=== PATIENT | female | born 1990 | race African-American/Black ===

== ENCOUNTER 2022-02-23 19:37 | Inpatient (IN) | payer OTHER ==
[2022-02-23] MEDS ORDERED: Promethazine HCl 25 MG/ML VIAL IM PRN (20:12)
[2022-02-23] MEDS ORDERED: Carboprost 250 MCG/ML AMP IM PRN (20:12)
[2022-02-23] MEDS ORDERED: Labetalol HCl 100 MG/20 ML VIAL SLOW IVP PRN ×2 (20:12)
[2022-02-23] MEDS ORDERED: Lorazepam 2 MG/ML VIAL SLOW IVP PRN (20:12)
[2022-02-23] MEDS ORDERED: Acetaminophen 500 MG TAB PO PRN (20:12)
[2022-02-23] MEDS ORDERED: hydrALAZINE 20 MG/ML VIAL SLOW IVP PRN (20:12)
[2022-02-23] MEDS ORDERED: Calcium Gluc 4.6 MEQ/10 ML (100 MG/ML) SLOW IVP PRN (20:12)
[2022-02-23] MEDS ORDERED: Magnesium Sulfate 20 gm/500 ml 20 GM/500 ML BAG ONE (20:12)
[2022-02-23] MEDS ORDERED: Diphenoxylate HCl/Atropine Tablet PO PRN (20:12)
[2022-02-23] MEDS ORDERED: Ibuprofen 800 MG TAB PO PRN (20:12)
[2022-02-23] MEDS ORDERED: HYDROcodone/Acetaminophen 5/325 mg Tablet PO PRN (20:12)
[2022-02-23] MEDS ORDERED: Misoprostol 200 MCG TAB PR PRN (20:12)
[2022-02-23] MEDS ORDERED: Lidocaine 1% (PF) 30 ML VIAL SC PRN (20:12)
[2022-02-23] MEDS ORDERED: Ondansetron PF 4 MG/2 ML Vial IVP PRN (20:12)
[2022-02-23] MEDS ORDERED: hydrALAZINE 20 MG/ML VIAL ONE (20:12)
[2022-02-23] MEDS ORDERED: Butorphanol Tartrate 1 MG/ML VIAL SLOW IVP PRN (20:12)
[2022-02-23] MEDS ORDERED: Betamet Acet/Betamet Na Ph 30 MG/5 ML VIAL ONE (20:13)
[2022-02-23] MEDS ORDERED: NS w/ Oxytocin 30 units 500 ML IV SCH (20:15)
[2022-02-23] MEDS ORDERED: Lactated Ringer's 1,000 ML IV SCH (20:15)
[2022-02-23] MEDS: hydrALAZINE 20 MG/ML VIAL SLOW IVP PRN ×2 (20:32→21:27)
[2022-02-23 20:36] VITALS: BMI 25.4
[2022-02-23 20:52] LABS: Hemoglobin 7.4 g/dL (12.0-15.5); Mean Corpuscular HGB CONC 29.2 g/dL (32.0-36.0); Mean Corpuscular Hemoglobin 20.7 pg (27.0-33.0); Mean Corpuscular Volume 70.7 fl (81.6-98.3); Mean Platelet Volume 10.4 fl (7.4-10.4); Platelet Count 208 10x3/uL (150-450); RBC Distribution Width 17.1 % (11.5-14.5); Red Blood Cell (RBC) Count 3.58 10x6/uL (3.90-5.03)
[2022-02-23 20:59] LABS: ALT (SGPT) Less than 6 U/L (8-55); AST (SGOT) 16 U/L (5-34); Albumin 3.6 g/dL (3.5-5.0); Alkaline Phosphatase 127 U/L (40-110); Anion Gap 13 mmol/L (10-20); BUN (Urea Nitrogen) 16 mg/dL (7.0-18.7); Bilirubin, Total 0.6 mg/dL (0.2-1.2); Calc. Creatinine Clearance 139 mL/min (70-130); Calcium 8.4 mg/dL (7.8-10.44); Carbon Dioxide 19 mmol/L (22-29); Chloride 106 mmol/L (98-107); Estimated GFR 113; Globulin 3.2 g/dL (2.4-3.5); Glucose 77 mg/dL (70-105); Potassium 4.2 mmol/L (3.5-5.1); Protein, Total 6.8 g/dL (6.0-8.3); Sodium 134 mmol/L (136-145)
[2022-02-23] MEDS ORDERED: Penicillin G Potassium 5 MILL.UNITS in Sodium Chloride 0.9% 100 ML IVPB SCH (21:15)
[2022-02-23 21:18] LABS: HBSAg Index 0.22 S/CO (0-0.99); Hep B Surf Ag Non-Reactive S/CO (NonReactive)
[2022-02-23 21:34] LABS: INR-International Normal Ratio 0.9; PTT 22.5 sec (22.0-33.0); Prothrombin Time 9.3 sec (9.5-12.1)
[2022-02-23] MEDS: Labetalol HCl 100 MG TAB PO SCH (21:39)
[2022-02-23 22:34] LABS: Syphilis Antibody INDETERMINATE (Nonreactive)
[2022-02-23] MEDS: Betamet Acet/Betamet Na Ph 30 MG/5 ML VIAL IM SCH (22:39)
[2022-02-23 23:04] LABS: Amphetamine Not Detected (NotDetected); Barbiturates Screen Not Detected (NotDetected); Benzodiazepine Screen Not Detected (NotDetected); Cocaine Metabolite Screen Not Detected (NotDetected); Methadone Not Detected (NotDetected); Methamphetamine Not Detected (NotDetected); Opiate Screen Not Detected (NotDetected); Oxycodone Screen Not Detected (NotDetected); Phencyclidine (PCP) Not Detected (NotDetected); THC/Cannabinoid Screen Not Detected (NotDetected); Tricyclic Screen Not Detected (NotDetected)
[2022-02-24 02:27] LABS: SARS-CoV-2 NAA Rapid Test Not Detected (NotDetected)
[2022-02-24] MEDS: Magnesium Sulfate 20 gm/500 ml 20 GM/500 ML BAG IVPB SCH ×2 (05:00→15:32)
[2022-02-24] MEDS: Labetalol HCl 100 MG TAB PO SCH ×2 (05:59→09:34)
[2022-02-24] MEDS: hydrALAZINE 20 MG/ML VIAL SLOW IVP PRN ×4 (09:36→21:33)
[2022-02-24] MEDS: Betamet Acet/Betamet Na Ph 30 MG/5 ML VIAL IM SCH (12:18)
[2022-02-24] MEDS ORDERED: Penicillin G Potassium 5 MILL.UNITS VIAL ONE (17:00)
[2022-02-24] MEDS: Misoprostol 100 MCG TAB VAG SCH ×2 (17:08→21:00)
[2022-02-24] MEDS ORDERED: Labetalol HCl 100 MG TAB PO SCH (21:00)
[2022-02-24] MEDS: Penicillin G 2.5 MILL.units 2.5 MILL.UNITS in Premix Bag 1 BAG IVPB SCH (21:00)
[2022-02-25] MEDS: Penicillin G 2.5 MILL.units 2.5 MILL.UNITS in Premix Bag 1 BAG IVPB SCH (01:20)
[2022-02-25] MEDS ORDERED: Fentanyl 2 mcg/Bup 0.1% Cadd 100 ML ONE (01:35)
[2022-02-25] MEDS: Magnesium Sulfate 20 gm/500 ml 20 GM/500 ML BAG IVPB SCH ×3 (02:22→21:08)
[2022-02-25] MEDS ORDERED: Dexmedetomidine 200 MCG/2 ML VIAL ONE (03:38)
[2022-02-25] MEDS ORDERED: Promethazine HCl 25 MG/ML VIAL IM PRN ×2 (03:50→05:31)
[2022-02-25] MEDS ORDERED: ePHEDrine Sulfate 50 MG/10 ML VIAL SLOW IVP PRN (03:50)
[2022-02-25] MEDS ORDERED: Moisturizing Cream (Eucerin) 113 GM JAR TOP PRN (03:50)
[2022-02-25] MEDS ORDERED: Ondansetron PF 4 MG/2 ML Vial IVP PRN ×2 (03:50→05:31)
[2022-02-25] MEDS ORDERED: Lactated Ringer's 500 ML IV PRN (03:50)
[2022-02-25] MEDS ORDERED: Acetaminophen 325 MG TAB PO PRN (03:50)
[2022-02-25] MEDS ORDERED: diphenhydrAMINE 50 MG/ML VIAL IVP PRN (03:50)
[2022-02-25] MEDS ORDERED: Naloxone HCl 0.4 mg/ml Vial IVP PRN ×2 (03:50)
[2022-02-25] MEDS ORDERED: Communication Order-Pharmacy FS SCH (04:00)
[2022-02-25] MEDS ORDERED: Fentanyl 2 mcg/Bupivacaine 0.1% Cassette 100 ML EPIDURAL SCH (04:00)
[2022-02-25] MEDS ORDERED: Misoprostol 200 MCG TAB ONE (05:13)
[2022-02-25] MEDS ORDERED: Lorazepam 2 MG/ML VIAL SLOW IVP PRN (05:31)
[2022-02-25] MEDS ORDERED: Benzocaine-Menthol 82.5 ML CAN TOP PRN (05:31)
[2022-02-25] MEDS ORDERED: HYDROcodone/Acetaminophen 5/325 mg Tablet PO PRN (05:31)
[2022-02-25] MEDS ORDERED: NS w/ Oxytocin 30 units 500 ML IV SCH (05:31)
[2022-02-25] MEDS ORDERED: diphenhydrAMINE 25 MG CAP PO PRN (05:31)
[2022-02-25] MEDS ORDERED: Calcium Gluc 4.6 MEQ/10 ML (100 MG/ML) SLOW IVP PRN (05:31)
[2022-02-25] MEDS ORDERED: hydrALAZINE 20 MG/ML VIAL SLOW IVP PRN ×2 (05:31→14:31)
[2022-02-25] MEDS ORDERED: Bisacodyl 10 MG SUPP PR PRN (05:31)
[2022-02-25] MEDS ORDERED: Milk Of Magnesia 30 ML UDCUP PO PRN (05:31)
[2022-02-25] MEDS ORDERED: Boostrix 0.5 ML (Tdap) VIAL (>/=7 yrs of age) IM ONE (05:31)
[2022-02-25] MEDS ORDERED: hydrALAZINE 20 MG/ML VIAL ONE (05:41)
[2022-02-25] MEDS: hydrALAZINE 20 MG/ML VIAL SLOW IVP PRN ×3 (06:40→07:30)
[2022-02-25] MEDS: Ferrous Sulfate 325 MG TAB PO SCH ×2 (08:41→19:32)
[2022-02-25] MEDS: Prenatal Vitamin 1 TAB PO SCH (08:41)
[2022-02-25] MEDS: Docusate 100 MG CAP PO SCH ×2 (08:41→21:08)
[2022-02-25] MEDS: Ibuprofen 800 MG TAB PO SCH ×3 (08:41→21:08)
[2022-02-25] MEDS: NIFEdipine XL 30 MG TAB PO SCH (08:41)
[2022-02-25] MEDS: Labetalol HCl 100 MG/20 ML VIAL SLOW IVP PRN (10:37)
[2022-02-25] MEDS: Misoprostol 100 MCG TAB VAG SCH (19:31)
[2022-02-25] MEDS: Labetalol HCl 100 MG TAB PO SCH (21:08)
[2022-02-26 05:28] LABS: Magnesium 6.6 mg/dL (1.6-2.6)
[2022-02-26 05:30] LABS: Hemoglobin 6.9 g/dL (12.0-15.5); Mean Corpuscular HGB CONC 29.4 g/dL (32.0-36.0); Mean Corpuscular Hemoglobin 20.7 pg (27.0-33.0); Mean Corpuscular Volume 70.6 fl (81.6-98.3); Mean Platelet Volume 10.3 fl (7.4-10.4); Platelet Count 183 10x3/uL (150-450); RBC Distribution Width 17.3 % (11.5-14.5); Red Blood Cell (RBC) Count 3.33 10x6/uL (3.90-5.03); White Blood Cell (WBC) Count 14.1 10x3/uL (3.5-10.5)
[2022-02-26] MEDS: Labetalol HCl 100 MG/20 ML VIAL SLOW IVP PRN (07:00)
[2022-02-26] MEDS: NIFEdipine XL 30 MG TAB PO SCH ×2 (07:22→07:23)
[2022-02-26] MEDS: Ibuprofen 800 MG TAB PO SCH ×3 (07:24→21:13)
[2022-02-26] MEDS: Labetalol HCl 100 MG TAB PO SCH ×3 (07:24→16:23)
[2022-02-26] MEDS: Prenatal Vitamin 1 TAB PO SCH (07:24)
[2022-02-26] MEDS: Ferrous Sulfate 325 MG TAB PO SCH (07:24)
[2022-02-26] MEDS ORDERED: hydrALAZINE 20 MG/ML VIAL SLOW IVP PRN (07:30)
[2022-02-26] MEDS ORDERED: Labetalol HCl 100 MG TAB PO SCH (08:00)
[2022-02-26] MEDS: Docusate 100 MG CAP PO SCH ×2 (13:53→21:13)
[2022-02-26] MEDS ORDERED: Labetalol HCl 100 MG/20 ML VIAL SLOW IVP SCH (20:15)
[2022-02-27] MEDS: Labetalol HCl 100 MG TAB PO SCH ×2 (01:37→16:26)
[2022-02-27] MEDS: Ibuprofen 800 MG TAB PO SCH ×3 (05:15→21:22)
[2022-02-27 05:57] LABS: ALT (SGPT) Less than 6 U/L (8-55); AST (SGOT) 13 U/L (5-34); Albumin 3.2 g/dL (3.5-5.0); Alkaline Phosphatase 88 U/L (40-110); Anion Gap 12 mmol/L (10-20); BUN (Urea Nitrogen) 21 mg/dL (7.0-18.7); Bilirubin, Total 0.6 mg/dL (0.2-1.2); Calc. Creatinine Clearance 141 mL/min (70-130); Calcium 8.4 mg/dL (7.8-10.44); Carbon Dioxide 22 mmol/L (22-29); Chloride 106 mmol/L (98-107); Estimated GFR 115; Glucose 74 mg/dL (70-105); Potassium 4.3 mmol/L (3.5-5.1); Protein, Total 6.2 g/dL (6.0-8.3); Sodium 136 mmol/L (136-145)
[2022-02-27] MEDS: Misoprostol 100 MCG TAB VAG SCH (07:27)
[2022-02-27] MEDS: Ferrous Sulfate 325 MG TAB PO SCH ×3 (07:42→16:25)
[2022-02-27] MEDS: Docusate 100 MG CAP PO SCH ×2 (07:52→21:22)
[2022-02-27] MEDS: Prenatal Vitamin 1 TAB PO SCH (07:52)
[2022-02-27] MEDS: NIFEdipine XL 60 MG TAB PO SCH (07:52)
[2022-02-27] MEDS ORDERED: Labetalol HCl 100 MG TAB PO SCH (09:00)
[2022-02-28] MEDS: Labetalol HCl 100 MG TAB PO SCH ×3 (00:34→17:53)
[2022-02-28] MEDS: Ibuprofen 800 MG TAB PO SCH ×3 (05:06→23:09)
[2022-02-28] MEDS: Penicillin G 2.5 MILL.units 2.5 MILL.UNITS in Premix Bag 1 BAG IVPB SCH (08:28)
[2022-02-28] MEDS: NIFEdipine XL 60 MG TAB PO SCH (08:41)
[2022-02-28] MEDS: Prenatal Vitamin 1 TAB PO SCH (08:42)
[2022-02-28] MEDS: Docusate 100 MG CAP PO SCH ×2 (08:43→23:09)
[2022-02-28] MEDS: Ferrous Sulfate 325 MG TAB PO SCH ×2 (08:43→17:53)
[2022-03-01] MEDS: Labetalol HCl 100 MG TAB PO SCH ×3 (01:06→17:12)
[2022-03-01] MEDS: Ibuprofen 800 MG TAB PO SCH ×2 (05:51→14:00)
[2022-03-01] MEDS: Penicillin G 2.5 MILL.units 2.5 MILL.UNITS in Premix Bag 1 BAG IVPB SCH ×2 (07:03→07:04)
[2022-03-01] MEDS: NIFEdipine XL 60 MG TAB PO SCH (09:59)
[2022-03-01] MEDS: Ferrous Sulfate 325 MG TAB PO SCH ×2 (10:00→17:12)
[2022-03-01] MEDS: Docusate 100 MG CAP PO SCH (10:00)
[2022-03-01] MEDS: Prenatal Vitamin 1 TAB PO SCH (10:05)
[2022-03-01 16:35] VITALS: BP 119/71; TEMP 98.6
== END 2022-03-01 17:54 | disposition home or self-care (01) | DRG 807 ==
LOC: CSHLD/OP 19:37 → CSHLD 22:43 → CSHPP 02-26 10:00
PROVIDERS: ADMIT Family Medicine; ATTEND Family Medicine
PROC: 10907ZC Drainage of Amniotic Fluid, Therapeutic from Products of Conception, Via Natural or Artificial Opening (ICD-10-PCS; 2022-02-24)
PROC: 10E0XZZ Delivery of Products of Conception, External Approach (ICD-10-PCS; principal; 2022-02-25)
DX: O14.14 Severe pre-eclampsia complicating childbirth (principal); Z37.0 Single live birth; Z3A.34 34 weeks gestation of pregnancy; Z86.19 Personal history of other infectious and parasitic diseases; O99.824 Streptococcus B carrier state complicating childbirth; Z80.3 Family history of malignant neoplasm of breast; Z80.0 Family history of malignant neoplasm of digestive organs; Z80.42 Family history of malignant neoplasm of prostate; Z20.822 Contact with and (suspected) exposure to COVID-19
CPT/HCPCS: 36415; 51702; 70450; 76815; 76819; 80053; 80306; 82570; 83735; 84156; 85027; 85610; 85730; 86593; 86780; 86850; 86900; 86901; 87340; 93975; 99285; J0360; J0702; J1200; J2540; J2590; J3475; J3490; U0002

== ENCOUNTER 2022-10-25 15:33 | Observation (INO) | payer OTHER ==
[2022-10-25] MEDS ORDERED: Acetaminophen 325 MG TAB PO PRN (16:08)
[2022-10-25] MEDS ORDERED: hydrALAZINE 20 MG/ML VIAL SLOW IVP PRN (16:14)
[2022-10-25] MEDS ORDERED: Sodium Chloride 0.9% 1,000 ML IV SCH (16:15)
[2022-10-25] MEDS ORDERED: Ondansetron PF 4 MG/2 ML Vial IVP PRN (16:56)
[2022-10-25 16:59] LABS: #Monocytes 0.4 10x3/uL (0.0-1.1); #Neutrophils 2.9 10x3/uL (1.5-8.4); %Basophils 0.2 % (0.0-2.0); %Eosinophils 0.4 % (0.0-6.0); %Lymphocytes 36.3 % (18.0-47.0); %Neutrophils 55.9 % (40.0-75.0); Hemoglobin 7.5 g/dL (12.0-15.5); Mean Corpuscular HGB CONC 29.5 g/dL (32.0-36.0); Mean Corpuscular Volume 67.7 fl (81.6-98.3); Mean Platelet Volume 9.6 fl (7.4-10.4); Platelet Count 266 10x3/uL (150-450); RBC Distribution Width 23.5 % (11.5-14.5); Red Blood Cell (RBC) Count 3.75 10x6/uL (3.90-5.03); White Blood Cell (WBC) Count 5.1 10x3/uL (3.5-10.5)
[2022-10-25 17:19] LABS: ALT (SGPT) 9 U/L (8-55); AST (SGOT) 18 U/L (5-34); Albumin 4.2 g/dL (3.5-5.0); Alkaline Phosphatase 50 U/L (40-110); Anion Gap 12 mmol/L (10-20); BUN (Urea Nitrogen) 15 mg/dL (7.0-18.7); Bilirubin, Total 0.5 mg/dL (0.2-1.2); Calc. Creatinine Clearance 0 mL/min (70-130); Calcium 8.9 mg/dL (7.8-10.44); Carbon Dioxide 20 mmol/L (22-29); Chloride 107 mmol/L (98-107); Estimated GFR 122; Globulin 3.1 g/dL (2.4-3.5); Glucose 97 mg/dL (70-105); Lipase 18 U/L (8-78); Potassium 3.3 mmol/L (3.5-5.1); Protein, Total 7.3 g/dL (6.0-8.3)
[2022-10-25 17:23] LABS: Bilirubin Neg (Negative); Blood, Urine 10 (Negative); Clarity Clear (Clear); Glucose, Urine (Dipstick) Normal (Negative); Ketone, Urine 5 mg/dL (Negative); Leukocyte 25 (Negative); Nitrite Negative (Negative); Protein, Urine (Dipstick) 30 mg/dl (Neg-Trace); Specific Gravity, Urine 1.025 (1.005-1.030); Urobilinogen Normal mg/dL (Less than 2)
[2022-10-25 17:35] LABS: Sodium 136 mmol/L (136-145)
[2022-10-25 17:40] LABS: Bacteria/HPF Rare-Few HPF (None Seen); CAUTI Indications for Culture Pregnancy; RBC/HPF 0-3 HPF (0-3)
[2022-10-25 17:41] LABS: Mucous/LPF Rare LPF (<2+); Urine Culture Reflex Yes Yes
[2022-10-25 18:45] VITALS: BMI 15.5
[2022-10-25] MEDS: Lactated Ringer's 1,000 ML IV SCH (20:41)
[2022-10-25] MEDS: pyridOXINE 50 MG (B6) TAB PO SCH (20:42)
[2022-10-25] MEDS: Potassium Chloride 20 MEQ in Premix Bag 1 BAG IVPB SCH ×2 (20:42→22:03)
[2022-10-25] MEDS: Labetalol HCl 100 MG/20 ML VIAL SLOW IVP PRN (20:44)
[2022-10-25] MEDS ORDERED: diphenhydrAMINE 25 MG CAP PO SCH (20:45)
[2022-10-25] MEDS ORDERED: Labetalol HCl 100 MG TAB PO SCH (21:00)
[2022-10-25] MEDS: Famotidine/PF 20 mg/2ml Vial SLOW IVP SCH (21:57)
[2022-10-26] MEDS: pyridOXINE 50 MG (B6) TAB PO SCH ×3 (03:17→21:29)
[2022-10-26] MEDS: Labetalol HCl 100 MG/20 ML VIAL SLOW IVP PRN ×2 (03:33→16:42)
[2022-10-26 03:38] LABS: Anion Gap 12 mmol/L (10-20); BUN (Urea Nitrogen) 12 mg/dL (7.0-18.7); Calc. Creatinine Clearance 92 mL/min (70-130); Calcium 9.2 mg/dL (7.8-10.44); Carbon Dioxide 20 mmol/L (22-29); Chloride 107 mmol/L (98-107); Estimated GFR 125; Glucose 101 mg/dL (70-105); Potassium 3.3 mmol/L (3.5-5.1); Sodium 136 mmol/L (136-145)
[2022-10-26 04:00] LABS: Free T4 (Free Thyroxine) 1.02 ng/dL (0.70-1.48); Thyroid Stimulating Hormone 0.1421 uIU/mL (0.35-4.94)
[2022-10-26] MEDS ORDERED: Potassium Chloride 20 MEQ TAB PO SCH (08:00)
[2022-10-26] MEDS ORDERED: NIFEdipine XL 30 MG TAB PO SCH (09:00)
[2022-10-26] MEDS: Famotidine/PF 20 mg/2ml Vial SLOW IVP SCH ×2 (09:01→21:29)
[2022-10-26] MEDS: Lactated Ringer's 1,000 ML IV SCH ×2 (09:01→15:04)
[2022-10-26] MEDS: Labetalol HCl 200 MG TAB PO SCH ×2 (09:01→21:29)
[2022-10-26 10:18] LABS: Magnesium 1.9 mg/dL (1.6-2.6); Phosphorus 2.8 mg/dL (2.3-4.7)
[2022-10-26] MEDS ORDERED: Electrolyte Replacement Protocol 1 EACH FS PRN (11:20)
[2022-10-26] MEDS ORDERED: Magnesium 2 GM/50 ML(in water) 2 GM in Premix Bag 1 BAG IVPB SCH (12:00)
[2022-10-26 14:20] LABS: Potassium 3.5 mmol/L (3.5-5.1)
[2022-10-26] MEDS: diphenhydrAMINE 25 MG CAP PO PRN ×2 (15:04→21:29)
[2022-10-27 07:41] VITALS: BP 152/93; TEMP 98.1
[2022-10-27] MEDS: Labetalol HCl 200 MG TAB PO SCH (08:54)
[2022-10-27] MEDS: Famotidine/PF 20 mg/2ml Vial SLOW IVP SCH (08:55)
[2022-10-27] MEDS ORDERED: Magnesium 2 GM/50 ML(in water) 2 GM in Premix Bag 1 BAG IVPB SCH (09:00)
[2022-10-27] MEDS ORDERED: Aspirin 81 mg Enteric Coated Tablet PO SCH (09:00)
[2022-10-27] MEDS ORDERED: NIFEdipine XL 60 MG TAB PO SCH (09:00)
== END 2022-10-27 11:00 | disposition home or self-care (01) ==
LOC: INTOOBSV 15:33 → CSHPP 15:33
PROVIDERS: ADMIT Obstetrics & Gynecology; ATTEND Internal Medicine
DX: O11.1 Pre-existing hypertension with pre-eclampsia, first trimester (principal); O21.0 Mild hyperemesis gravidarum; O99.891 Other specified diseases and conditions complicating pregnancy; R10.30 Lower abdominal pain, unspecified; R56.9 Unspecified convulsions; O24.311 Unspecified pre-existing diabetes mellitus in pregnancy, first trimester; O99.331 Smoking (tobacco) complicating pregnancy, first trimester; F17.210 Nicotine dependence, cigarettes, uncomplicated; O99.281 Endocrine, nutritional and metabolic diseases complicating pregnancy, first trimester; E87.6 Hypokalemia; E86.0 Dehydration; O99.011 Anemia complicating pregnancy, first trimester; D64.9 Anemia, unspecified; Z3A.01 Less than 8 weeks gestation of pregnancy
CPT/HCPCS: 36415; 71045; 76801; 80048; 80053; 81001; 81025; 82043; 82570; 83690; 83735; 84100; 84156; 84439; 84443; 84484; 84550; 84703; 85025; 87086; 87480; 87491; 87510; 87591; 87660; 87661; 93005; 96361; 96365; 96374; 96375; 96376; C9113; G0378; J0360; J0780; J3475; J3480; J7050; J7120; Q0162; S0028

== ENCOUNTER 2023-02-17 04:28 | Inpatient (IN) | payer OTHER, SELFPAY ==
[2023-02-17] MEDS ORDERED: Magnesium Sulfate 20 gm/500 ml 20 GM/500 ML BAG ONE (04:36)
[2023-02-17] MEDS ORDERED: hydrALAZINE 20 MG/ML VIAL ONE (04:38)
[2023-02-17 04:44] VITALS: BMI 23.1
[2023-02-17] MEDS ORDERED: Ondansetron PF 4 MG/2 ML Vial IVP PRN (04:46)
[2023-02-17] MEDS ORDERED: Promethazine HCl 25 MG/ML VIAL IM PRN (04:46)
[2023-02-17] MEDS ORDERED: hydrALAZINE 20 MG/ML VIAL SLOW IVP PRN ×3 (04:46)
[2023-02-17] MEDS ORDERED: Calcium Gluc 4.6 MEQ/10 ML (100 MG/ML) SLOW IVP PRN (04:46)
[2023-02-17] MEDS ORDERED: Labetalol HCl 100 MG/20 ML VIAL SLOW IVP PRN ×5 (04:46→08:48)
[2023-02-17] MEDS ORDERED: fentaNYL 50 mcg/mL 1 mL Vial SLOW IVP PRN (04:46)
[2023-02-17] MEDS ORDERED: Lorazepam 2 MG/ML VIAL SLOW IVP PRN (04:46)
[2023-02-17] MEDS ORDERED: Lactated Ringer's 1,000 ML IV SCH (05:00)
[2023-02-17] MEDS ORDERED: Oxytocin 30 units/NS 500 ML 500 ML IV SCH (05:00)
[2023-02-17] MEDS ORDERED: Magnesium Sulfate 20 gm/500 ml 20 GM/500 ML BAG IVPB SCH (05:00)
[2023-02-17] MEDS: Betamet Acet/Betamet Na Ph 30 MG/5 ML VIAL IM SCH (05:29)
[2023-02-17 05:49] LABS: Creatinine, Urine 244.02 mg/dL (47-110)
[2023-02-17 06:03] LABS: Hematocrit 24.8 % (34.9-44.5); Hemoglobin 7.1 g/dL (12.0-15.5); Mean Corpuscular HGB CONC 28.6 g/dL (32.0-36.0); Mean Corpuscular Hemoglobin 19.8 pg (27.0-33.0); Mean Corpuscular Volume 69.3 fl (81.6-98.3); Mean Platelet Volume 9.8 fl (7.4-10.4); Platelet Count 291 10x3/uL (150-450); RBC Distribution Width 17.9 % (11.5-14.5); Red Blood Cell (RBC) Count 3.58 10x6/uL (3.90-5.03); White Blood Cell (WBC) Count 11.9 10x3/uL (3.5-10.5)
[2023-02-17 06:21] LABS: ALT (SGPT) Less than 7 U/L (8-55); AST (SGOT) 11 U/L (5-34); Albumin 3.7 g/dL (3.5-5.0); Alkaline Phosphatase 66 U/L (40-110); Anion Gap 14 mmol/L (10-20); BUN (Urea Nitrogen) 9 mg/dL (7.0-18.7); Bilirubin, Total 0.4 mg/dL (0.2-1.2); Calc. Creatinine Clearance 139 mL/min (70-130); Calcium 8.3 mg/dL (7.8-10.44); Carbon Dioxide 20 mmol/L (22-29); Chloride 105 mmol/L (98-107); Estimated GFR 120; Globulin 3.5 g/dL (2.4-3.5); Glucose 110 mg/dL (70-105); Potassium 3.4 mmol/L (3.5-5.1); Protein, Total 7.2 g/dL (6.0-8.3); Sodium 136 mmol/L (136-145)
[2023-02-17 06:37] LABS: HBSAg Index 0.27 S/CO (0-0.99); Hep B Surf Ag - L&D Non-Reactive S/CO (NonReactive)
[2023-02-17 06:41] LABS: Syphilis Antibody Index 13.54 S/CO (<1.00 Non-Reactive)
[2023-02-17 07:09] LABS: Syphilis Antibody INDETERMINATE (Nonreactive)
[2023-02-17] MEDS ORDERED: diphenhydrAMINE 50 MG/ML VIAL ONE (08:50)
[2023-02-17] MEDS ORDERED: diphenhydrAMINE 50 MG/ML VIAL IVP SCH (09:00)
[2023-02-17 10:37] LABS: Bilirubin Neg (Negative); Blood, Urine 10 (Negative); Clarity Slightly Cloudy (Clear); Glucose, Urine (Dipstick) Normal (Negative); Ketone, Urine Negative (Negative); Leukocyte 500 (Negative); Nitrite Negative (Negative); Protein, Urine (Dipstick) 30 mg/dl (Neg-Trace); Specific Gravity, Urine 1.015 (1.005-1.030)
[2023-02-17 10:45] LABS: Amphetamine Not Detected (NotDetected); Barbiturates Screen Not Detected (NotDetected); Benzodiazepine Screen Not Detected (NotDetected); Cocaine Metabolite Screen Not Detected (NotDetected); Methadone Not Detected (NotDetected); Methamphetamine Not Detected (NotDetected); Opiate Screen Not Detected (NotDetected); Oxycodone Screen Not Detected (NotDetected); Phencyclidine (PCP) Not Detected (NotDetected); THC/Cannabinoid Screen Not Detected (NotDetected); Tricyclic Screen Not Detected (NotDetected)
[2023-02-17 10:48] LABS: Bacteria/HPF Rare-Few HPF (None Seen); RBC/HPF 0-3 HPF (0-3); Triple Phosphate Crystal 3+ HPF (None Seen)
[2023-02-17 11:21] LABS: Hematocrit 23.7 % (34.9-44.5); Hemoglobin 6.9 g/dL (12.0-15.5); Platelet Count 270 10x3/uL (150-450)
[2023-02-17] MEDS ORDERED: Sodium Chloride 0.9% 1,000 ML IV SCH (11:45)
[2023-02-17] MEDS ORDERED: cefTRIAXone\\ROCEPHIN 1 GM in Sodium Chloride 0.9% 100 ML IVPB SCH (11:45)
[2023-02-17 11:54] LABS: HIV (1/2) Antibody/Antigen Non-Reactive (NonReactive); HIV 1/2 INDEX 0.06 S/CO (<1.00)
[2023-02-17 13:21] LABS: SARS-CoV-2 NAA Rapid Test Not Detected (NotDetected)
[2023-02-17] MEDS ORDERED: NIFEdipine XL 30 MG ER.TAB PO SCH (18:30)
[2023-02-17 19:08] LABS: Hemoglobin 7.2 g/dL (12.0-15.5); Platelet Count 252 10x3/uL (150-450)
[2023-02-18] MEDS: Betamet Acet/Betamet Na Ph 30 MG/5 ML VIAL IM SCH (05:23)
[2023-02-18] MEDS ORDERED: NIFEdipine XL 30 MG ER.TAB PO SCH ×2 (09:00→12:00)
[2023-02-18 11:55] VITALS: BP 140/89
[2023-02-19] MEDS ORDERED: NIFEdipine XL 30 MG ER.TAB PO SCH (09:00)
[2023-02-20 12:27] LABS: Group B Streptococcus by PCR Not Detected (NotDetected)
== END 2023-02-18 16:35 | disposition home or self-care (01) | DRG 832 ==
LOC: CSHLD/OP 04:28 → CSHLD 04:46
PROVIDERS: ADMIT Obstetrics & Gynecology; ATTEND Obstetrics & Gynecology
PROC: 30233N1 Transfusion of Nonautologous Red Blood Cells into Peripheral Vein, Percutaneous Approach (ICD-10-PCS; principal; 2023-02-17)
DX: O44.12 Complete placenta previa with hemorrhage, second trimester (principal); O10.912 Unspecified pre-existing hypertension complicating pregnancy, second trimester; Z3A.26 26 weeks gestation of pregnancy; D64.9 Anemia, unspecified; O99.012 Anemia complicating pregnancy, second trimester
CPT/HCPCS: 36415; 36430; 76805; 80053; 80306; 81003; 81015; 82570; 84156; 85027; 86593; 86762; 86780; 86850; 86900; 86901; 87340; 87389; 87653; J0360; J0696; J0702; J1200; J3475; J3490; J7050; P9016

== ENCOUNTER 2023-05-05 09:25 | Inpatient (IN) | payer MEDICAID, OTHER ==
[2023-05-05] MEDS: hydrALAZINE 20 MG/ML VIAL ONE ×2 (09:38→09:40)
[2023-05-05] MEDS ORDERED: NIFEdipine XL 90 MG ER.TAB PO SCH (10:00)
[2023-05-05] MEDS ORDERED: hydrALAZINE 20 MG/ML VIAL SLOW IVP PRN ×2 (10:02)
[2023-05-05] MEDS ORDERED: Labetalol HCl 100 MG/20 ML VIAL SLOW IVP PRN ×3 (10:02)
[2023-05-05 10:03] VITALS: BP 178/111
[2023-05-05 10:07] VITALS: BMI 23.1
[2023-05-05] MEDS ORDERED: Magnesium Sulfate 20 gm/500 ml 20 GM/500 ML BAG ONE (10:42)
[2023-05-05] MEDS ORDERED: Carboprost 250 MCG/ML AMP IM PRN (10:47)
[2023-05-05] MEDS ORDERED: Lorazepam 2 MG/ML VIAL SLOW IVP PRN (10:47)
[2023-05-05] MEDS ORDERED: Diphenoxylate HCl/Atropine Tablet PO PRN (10:47)
[2023-05-05] MEDS ORDERED: Promethazine HCl 25 MG/ML VIAL IM PRN (10:47)
[2023-05-05] MEDS ORDERED: Acetaminophen 500 MG TAB PO PRN (10:47)
[2023-05-05] MEDS ORDERED: Tranexamic Acid 1,000 MG/10 ML VIAL IVP PRN (10:47)
[2023-05-05] MEDS ORDERED: Ondansetron PF 4 MG/2 ML Vial IVP PRN (10:47)
[2023-05-05] MEDS ORDERED: Docusate 100 MG CAP PO PRN (10:47)
[2023-05-05] MEDS ORDERED: Calcium Gluc 4.6 MEQ/10 ML (100 MG/ML) SLOW IVP PRN (10:47)
[2023-05-05] MEDS ORDERED: Misoprostol 200 MCG TAB PR PRN (10:47)
[2023-05-05 10:49] LABS: Creatinine, Urine 107.36 mg/dL (47-110)
[2023-05-05] MEDS ORDERED: Lorazepam 2 MG/ML VIAL ONE (10:52)
[2023-05-05 10:53] LABS: #Basophils 0.1 10x3/uL (0.0-0.2); #Eosinphils 0.1 10x3/uL (0.0-0.5); #Monocytes 0.7 10x3/uL (0.0-1.1); #Neutrophils 10.3 10x3/uL (1.5-8.4); %Basophils 0.4 % (0.0-2.0); %Eosinophils 0.9 % (0.0-6.0); %Lymphocytes 18.5 % (18.0-47.0); %Monocytes 4.8 % (0.0-10.0); %Neutrophils 74.5 % (40.0-75.0); Hematocrit 21.9 % (34.9-44.5); Hemoglobin 6.3 g/dL (12.0-15.5); Mean Corpuscular HGB CONC 28.8 g/dL (32.0-36.0); Mean Corpuscular Hemoglobin 19.9 pg (27.0-33.0); Mean Corpuscular Volume 69.3 fl (81.6-98.3); Mean Platelet Volume 10.6 fl (7.4-10.4); Platelet Count 307 10x3/uL (150-450); RBC Distribution Width 19.7 % (11.5-14.5); Red Blood Cell (RBC) Count 3.16 10x6/uL (3.90-5.03); White Blood Cell (WBC) Count 13.9 10x3/uL (3.5-10.5)
[2023-05-05] MEDS ORDERED: Lorazepam 2 MG/ML VIAL SLOW IVP SCH (11:00)
[2023-05-05] MEDS ORDERED: Oxytocin 30 units/NS 500 ML 500 ML IV SCH (11:00)
[2023-05-05] MEDS ORDERED: Magnesium Sulfate 20 gm/500 ml 20 GM/500 ML BAG IVPB SCH (11:00)
[2023-05-05 11:06] LABS: ALT (SGPT) Less than 7 U/L (8-55); AST (SGOT) 14 U/L (5-34); Albumin 3.2 g/dL (3.5-5.0); Alkaline Phosphatase 151 U/L (40-110); Anion Gap 13 mmol/L (10-20); BUN (Urea Nitrogen) 11 mg/dL (7.0-18.7); Bilirubin, Total 0.4 mg/dL (0.2-1.2); Calc. Creatinine Clearance 143 mL/min (70-130); Calcium 8.3 mg/dL (7.8-10.44); Carbon Dioxide 18 mmol/L (22-29); Chloride 108 mmol/L (98-107); Estimated GFR 121; Globulin 3.2 g/dL (2.4-3.5); Glucose 91 mg/dL (70-105); Potassium 4.1 mmol/L (3.5-5.1); Protein, Total 6.4 g/dL (6.0-8.3); Sodium 135 mmol/L (136-145)
[2023-05-05 11:16] LABS: Hypochromia SLIGHT = 6-15 cells (100X) (0-5/hpf); Microcytosis MODERATE=15-30 cells (100X) (0-5/hpf); Polychromasia SLIGHT = 2-3 cells (100X) (0-2/hpf)
[2023-05-05 11:18] LABS: Anisocytosis SLIGHT = 6-15 cells (100X) (0-5/hpf); Elliptocytes SLIGHT = 2-5 cells (100X) (0-1/hpf)
[2023-05-05 11:25] LABS: Amphetamine Not Detected (NotDetected); Barbiturates Screen Not Detected (NotDetected); Benzodiazepine Screen Not Detected (NotDetected); Cocaine Metabolite Screen Not Detected (NotDetected); Methadone Not Detected (NotDetected); Methamphetamine Not Detected (NotDetected); Opiate Screen Not Detected (NotDetected); Oxycodone Screen Not Detected (NotDetected); Phencyclidine (PCP) Not Detected (NotDetected); THC/Cannabinoid Screen Not Detected (NotDetected); Tricyclic Screen Not Detected (NotDetected)
[2023-05-05 11:41] LABS: Troponin I Less than 0.010 ng/mL (< 0.028)
[2023-05-05 11:58] LABS: HBSAg Index 0.32 S/CO (0-0.99); Hep B Surf Ag - L&D Non-Reactive S/CO (NonReactive)
[2023-05-05 12:24] LABS: Syphilis Antibody Index 10.19 S/CO (<1.00 Non-Reactive)
[2023-05-05 15:24] LABS: Syphilis Antibody INDETERMINATE (Nonreactive)
== END 2023-05-05 13:31 | disposition short-term general hospital (02) | DRG 831 ==
LOC: CSHLD/OP 09:25 → CSHLD 10:47
PROVIDERS: ADMIT Student in an Organized Health Care Education/Training Program; ATTEND Student in an Organized Health Care Education/Training Program
DX: O44.53 Low lying placenta with hemorrhage, third trimester (principal); O11.3 Pre-existing hypertension with pre-eclampsia, third trimester; O90.3 Peripartum cardiomyopathy; O10.913 Unspecified pre-existing hypertension complicating pregnancy, third trimester; O36.5930 Maternal care for other known or suspected poor fetal growth, third trimester, not applicable or unspecified; F41.0 Panic disorder [episodic paroxysmal anxiety]; O99.343 Other mental disorders complicating pregnancy, third trimester; F17.210 Nicotine dependence, cigarettes, uncomplicated; Z3A.38 38 weeks gestation of pregnancy; O99.333 Smoking (tobacco) complicating pregnancy, third trimester; D64.9 Anemia, unspecified; O99.013 Anemia complicating pregnancy, third trimester
CPT/HCPCS: 36415; 36430; 71045; 76815; 76817; 80053; 80306; 82570; 83880; 84156; 84484; 84550; 85025; 86593; 86780; 86850; 86900; 86901; 87340; 93005; 93010; J0360; J2060; J3475; P9016

== ENCOUNTER 2024-11-14 05:06 | Inpatient (IN) | payer MEDICAID ==
[2024-11-14 05:19] VITALS: BMI 23.1
[2024-11-14] MEDS ORDERED: hydrALAZINE 20 MG/ML VIAL SLOW IVP PRN (05:51)
[2024-11-14] MEDS ORDERED: Calcium Gluc 4.6 MEQ/10 ML (100 MG/ML) SLOW IVP PRN (05:51)
[2024-11-14] MEDS: hydrALAZINE 20 MG/ML VIAL SLOW IVP PRN (06:11)
[2024-11-14] MEDS: Magnesium Sulfate 20 gm/500 ml 20 GM/500 ML BAG IVPB SCH (06:11)
[2024-11-14] MEDS ORDERED: Ondansetron PF 4 MG/2 ML Vial IVP PRN (07:23)
[2024-11-14] MEDS ORDERED: Acetaminophen 500 MG TAB PO PRN (07:23)
[2024-11-14 08:18] LABS: #Basophils Less than 0.03 10x3/uL (0.0-0.2); #Eosinophils 0.14 10x3/uL (0.0-0.5); #Monocytes 0.76 10x3/uL (0.0-1.1); #Neutrophils 8.88 10x3/uL (1.5-8.4); %Basophils 0.2 % (0.0-2.0); %Eosinophils 1.1 % (0.0-6.0); %Lymphocytes 20.0 % (18.0-47.0); %Monocytes 6.1 % (0.0-10.0); %Neutrophils 71.8 % (40.0-75.0); Hematocrit 31.1 % (34.9-44.5); Hemoglobin 9.9 g/dL (12.0-15.5); Mean Corpuscular Hemoglobin 28.7 pg (27.0-33.0); Mean Corpuscular Volume 90.1 fL (81.6-98.3); Platelet Count 316 10x3/uL (150-450); Red Blood Cell (RBC) Count 3.45 10x6/uL (3.90-5.03); White Blood Cell (WBC) Count 12.38 10x3/uL (3.5-10.5)
[2024-11-14 08:23] LABS: ALT (SGPT) Less than 7 U/L (Less than 34); AST (SGOT) 20 U/L (11-34); Albumin 3.4 g/dL (3.1-4.5); Alkaline Phosphatase 88 U/L (40-110); Anion Gap 15 mmol/L (10-20); BUN (Urea Nitrogen) 13 mg/dL (7.0-18.7); Bilirubin, Total 0.6 mg/dL (0.3-1.2); Calc. Creatinine Clearance 138 mL/min (70-130); Calcium 8.8 mg/dL (7.8-10.44); Carbon Dioxide 21 mmol/L (22-29); Chloride 103 mmol/L (98-107); Globulin 4.1 g/dL (2.4-3.5); Glucose 93 mg/dL (70-105); Potassium 3.1 mmol/L (3.5-5.1); Sodium 136 mmol/L (136-145)
[2024-11-14 08:29] LABS: Troponin I 0.016 ng/mL (< 0.028)
[2024-11-14 08:38] LABS: HIV (1/2) Antibody/Antigen Non-Reactive (NonReactive); HIV 1/2 INDEX 0.06 S/CO (<1.00); Hep B Surf Ag - L&D Non-Reactive S/CO (NonReactive)
[2024-11-14 08:58] VITALS: BP 128/69
[2024-11-14] MEDS: Sertraline 100 MG TAB PO SCH (09:05)
[2024-11-14] MEDS: NIFEdipine XL 60 MG ER.TAB PO SCH (09:05)
[2024-11-14] MEDS ORDERED: Preparation H Ointment 28 GM TUBE TOP SCH (11:30)
[2024-11-14 15:37] LABS: Syphilis Antibody Index 7.35 S/CO (<1.00 Non-Reactive)
[2024-11-14 15:40] LABS: Syphilis Titer Non-Reactive Titer (Nonreactive)
== END 2024-11-14 15:17 | disposition short-term general hospital (02) | DRG 831 ==
LOC: EEVIPCON 05:06 → CSHLD/OP 05:06 → CSHLD 07:35
PROVIDERS: ADMIT Family Medicine; ATTEND Family Medicine
DX: O30.042 Twin pregnancy, dichorionic/diamniotic, second trimester (principal); O11.2 Pre-existing hypertension with pre-eclampsia, second trimester; O99.332 Smoking (tobacco) complicating pregnancy, second trimester; O99.012 Anemia complicating pregnancy, second trimester; Z3A.25 25 weeks gestation of pregnancy; Z37.2 Twins, both liveborn; Z79.899 Other long term (current) drug therapy
CPT/HCPCS: 36415; 76810; 76819; 80053; 83880; 84484; 85025; 86593; 86780; 86850; 86900; 86901; 87340; 87389; J0360; J0702; J2060; J3475